=== PATIENT | male | born 1965 | race Caucasian/White ===

== ENCOUNTER 2023-02-07 06:28 | Emergency (ER) | payer BC, SELFPAY ==
[2023-02-07] VITALS (9 sets, daily range): BP systolic 149–160; BP diastolic 76–98; PULSE 72–100; RESP 16–18; TEMP 36.8; O2SAT 96–100; BMI 29.8
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
--- NOTE | 2023-02-07 07:03 | ECG_ITS ---
[facility] Test Date: 2023-02-07 Pat Name: Skyler Stapleton Department: Room: Gender: Male Corporate Controller: : 1965 Requested By: Ruy Amezquita Order Number: [id number] Bhaskar MD: Wayne Woodward M.D. Measurements Intervals [place] Rate: 80 P: 42 IA: 154 QRS: -31 QRSD: 92 T: 35 QT: 344 QTc: 397 Interpretive Statements SINUS RHYTHM LEFT AXIS DEVIATION [QRS AXIS < -30] INCOMPLETE RIGHT BUNDLE BRANCH BLOCK [90+ ms QRS DURATION, TERMINAL R IN V1/V2, 40+ ms S IN I/aVL/V4/V5/V6] No previous ECG available for comparison Electronically Signed On 02-08-2023 0:17:35 CDT by Wayne Woodward M.D. [id number]
[2023-02-07 07:18] LABS: Basophils # 0.1 10^3/uL (0.0-0.1); Basophils % 0.7 %; Eosinophils # 0.2 10^3/uL (0.0-0.8); Eosinophils % 1.9 %; Hematocrit 46.7 % (42.0-52.0); Hemoglobin 15.5 g/dL (11.7-16.6); Lymphocytes # 1.4 10^3/uL (0.8-4.8); Lymphocytes % 11.9 %; Mean Corpuscular HGB Conc 33.2 g/dL (30.0-36.0); Mean Corpuscular Hemoglobin 31.3 pg (28.0-34.0); Mean Corpuscular Volume 94.2 fl (80-94); Mean Platelet Volume 9.9 fL (7.4-10.4); Monocytes # 1.3 10^3/uL (0.2-0.9); Monocytes % 11.3 %; Neutrophils # 8.61 10^3/uL (1.8-7.7); Neutrophils % 73.4 %; Nucleated Red Blood Cells % 0 %; Platelet Count 285 10^3/cmm (130-400); Red Blood Count 4.96 10^6/uL (4.1-5.3); Red Cell Distribution Width 12.5 % (12.1-15.1); White Blood Count 11.7 10^3/uL (4.0-10.0)
[2023-02-07] MEDS: iohexol 350 mg/mL 500 mL Btl (per mL) IV (07:20)
--- NOTE | 2023-02-07 07:29 | PC.NURSE ---
Bedside report received from Jolanta Minor RN. Pt appears in severe pain in his left lower side. He is not able to sit upright. IV being established by nurse josiah in right AC. Pt states his is in surgery today and he does not want any pain medication that could alter him.
[2023-02-07 07:36] LABS: Alanine Aminotransferase 30 U/L (0-41); Albumin Level 4.3 g/dL (3.5-5.2); Alkaline Phosphatase 81 U/L (40-130); Anion Gap 17.6 (5-19); Aspartate Amino Transferase 18 U/L (0-40); Blood Urea Nitrogen 17 mg/dL (6-20); Calcium 9.7 mg/dL (8.5-10.5); Carbon Dioxide 23 mmol/L (22-29); Chloride 101 mmol/L (98-107); Glomerular Filtration Rate 56.9 mL/min (90-130); Glucose 104 mg/dL (65-115); Osmolality Calculated 286 mOsm/kg (285-295); Potassium 4.6 mmol/L (3.5-5.1); Sodium 137 mmol/L (136-145); Total Bilirubin 0.6 mg/dL (0.15-1.2); Total Protein 7.3 g/dL (6.6-8.7)
[2023-02-07 08:01] LABS: Bilirubin Urine Neg (Negative); Blood Urine 2+ (Negative); Glucose Urine UA Norm (Normal); Ketones Urine Negative (Negative); Leukocyte Esterase Urine Negative (Negative); Nitrate Urine Negative (Negative); Protein Urine Neg (Negative); Specific Gravity, Urine 1.015 (1.005-1.030); Urine Appearance Clear (CLEAR); Urine Color Yellow (Yellow); Urobilinogen Urine Norm (Negative); pH Urine 6 (5-7)
[2023-02-07 08:02] LABS: Add Urine Culture? No; Add Urine Microscopic? YES; Bacteria Urine TRACE /hpf; Coarse Granular Casts Urine 0-4 /lpf; Mucus Urine TRACE /hpf; RBC Urine 0-4 /hpf (0-2); Squamous Epithelial Cell Urine 0-4 /hpf (0-5); WBC Urine 0-4 /hpf (0-5)
[2023-02-07] MEDS: morphine 4 mg/mL SDV 1 mL IVP (11:41)
--- NOTE | 2023-02-07 11:46 | PC.NURSE ---
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 Pt offered wheelchair but preferred to walk. Nurse walked with pt - he was in apparent discomfort but he continued to stay stable. Pt able to sit in recliner next to 's bed.
--- NOTE | 2023-02-07 11:49 | PC.NURSE ---
Pt ambulated back with this nurse from OB dept to ER dept room 7. Pt tolerated well - pt denied wheelchair for on the walk back after nurse offered.
--- NOTE | 2023-02-10 14:33 | DCPLANNER ---
truck manager called patient due to no primary care physician - patient stated that he sees Dr. Varma at [facility] in [facility]
== END 2023-02-07 12:07 ==
PROVIDERS: Emergency Provider Family Medicine; PCP Family Medicine
DX: S37.012A Minor contusion of left kidney, initial encounter (principal); W55.22XA Struck by cow, initial encounter
CPT/HCPCS: 70450; 71260; 72125; 74177; 80053; 81001; 85025; 93005; 96374; 99285; J2270; Q9967